=== PATIENT | male | born 1935 | race Caucasian/White ===

== ENCOUNTER 2017-05-04 11:42 | Emergency (ER) | payer MEDICARE ==
[2017-05-04 12:18] VITALS: BP 140/86
--- NOTE | 2017-05-04 12:20 | UC ---
Skin Complaint HPI - HPI Summary HPI Summary: Pt presents with left middle finger puncture wound sustained 1 week ago. He tells me that he was using a railing to guide himself down a set of stairs and caught his finger on a piece of metal. Seemed to be healing well initially, but over the last 2 days has become swollen, red, and painful. Last tetanus was 2 months ago. Denies fever, chills, or decreased ROM - History of Current Complaint Chief Complaint: UCSkin Stated Complaint: FINGER PAIN Hx Obtained From: Patient Onset/Duration: Sudden Onset Skin Exposure Onset/Duration: Days Ago Onset Severity: Mild Current Severity: Mild Pain Intensity: 3 Pain Scale Used: 0-10 Numeric - Allergy/Home Medications Allergies/Adverse Reactions: Allergies Allergy/AdvReac Type Severity Reaction Status Date / Time No Known Allergies Allergy Verified 05/04/17 12:17 Home Medications: Home Medications Famotidine 40 mg PO DAILY 05/04/17 [History Confirmed 05/04/17] Lisinopril TAB* [Prinivil TAB 10 MG*] 20 mg PO DAILY 05/04/17 [History Confirmed 05/04/17] Rivaroxaban TAB(*) [Xarelto 20 mg] 1 tab PO BEDTIME 05/04/17 [History Confirmed 05/04/17] Review of Systems Constitutional: Negative Skin: Other - Swelling and redness left middle finger Respiratory: Negative Cardiovascular: Negative Gastrointestinal: Negative Musculoskeletal: Negative Neurological: Negative Psychological: Negative All Other Systems Reviewed And Are Negative: Yes PMH/Surg Hx/FS Hx/Imm Hx Endocrine History: Dyslipidemia Cardiovascular History: Hypertension - Surgical History Surgical History: Yes Surgery Procedure, Year, and Place: prostactectomy; right kidney benign tumor; right wrist after a fall - Family History Known Family History: Positive: Unknown - Social History Occupation: Retired Lives: With Family Alcohol Use: Daily Alcohol Amount: 1 drink daily Substance Use Type: None Smoking Status (MU): Former Smoker When Did the Patient Quit Smoking/Using Tobacco: 40 yrs ago - Immunization History Most Recent Tetanus Shot: 02/2017 Physical Exam - Summary Physical Exam Summary: GENERAL: NAD. WDWN. No pain distress. SKIN: Mild erythema and edema overlying left middle finger DIP near site of healed 1mm puncture wound. No drainage, bleeding, or warmth. NECK: Supple. Nontender. No lymphadenopathy. CHEST: CTAB. No r/r/w. No accessory muscle use. Breathing comfortably and in no distress. CV: Pulses intact radial and ulnar. Good cap refill distal fingers MSK: Mild TTP over left middle finger DIP with mild edema. FROM. 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 M NEURO: Alert. Sensations intact hand and all fingers. PSYCH: Age appropriate behavior. Triage Information Reviewed: Yes Vital Signs: Initial Vital Signs Temp 97.8 F 05/04/17 12:12 Pulse 74 05/04/17 12:12 Resp 18 05/04/17 12:12 BP 140/86 05/04/17 12:12 Pulse Ox 97 05/04/17 12:12 Course/Dx - Course Course Of Treatment: Cellulitis left middle finger. Keflex - Diagnoses Provider Diagnoses: Left middle finger cellulitis Discharge - Discharge Plan Condition: Stable Disposition: HOME Prescriptions: Cephalexin CAP* [Keflex CAP*] 500 mg PO BID #14 cap Patient Education Materials: Cellulitis (DC) Referrals: Nir Russell MD [Primary Care Provider] - Additional Instructions: If you develop a fever, shortness of breath, chest pain, new or worsening symptoms - please call your PCP or go to the ED. Your blood pressure was high at todays visit. Please see your primary provider within 4 weeks for recheck and re-evaluation.
== END 2017-05-04 12:34 | disposition home or self-care (01) ==
LOC: UCEAST 11:42
DX: L03.012 Cellulitis of left finger (principal); E78.5 Hyperlipidemia, unspecified; I10 Essential (primary) hypertension; Z87.891 Personal history of nicotine dependence
CPT/HCPCS: 99211; G0463

== ENCOUNTER 2017-08-25 13:07 | Observation (INO) | payer MEDICARE ==
[2017-08-25 13:47] LABS: ABS Basophils 0.1 10^3/ul (0-0.2); ABS Eosinophils 0.1 10^3/ul (0-0.6); ABS Lymphocytes 1.9 10^3/ul (1.0-4.8); ABS Monocytes 0.7 10^3/ul (0-0.8); ABS Neutrophils 5.1 10^3/ul (1.5-7.7); ABS Nucleated RBC 0 10^3/ul; Eosinophil % 0.7 % (0-6); Hematocrit 45 % (42-52); Lymphocyte % 24.3 % (25-47); Mean Corpuscular HGB Conc 34 g/dl (31-36); Mean Corpuscular Hemoglobin 32 pg (27-31); Mean Corpuscular Volume 96 fL (80-94); Mean Platelet Volume 9.1 um3 (7.4-10.4); Nucleated Red Blood Cells % 0.1; Platelet Count 229 10^3/ul (150-450); Red Blood Count 4.64 10^6/ul (4.00-5.40); Red Cell Distribution Width 14 % (10.5-15); White Blood Count 7.8 10^3/ul (3.5-10.8)
[2017-08-25 13:51] LABS: INR 1.31 (0.77-1.02)
[2017-08-25 14:04] LABS: EGFR Non-African American 62.5 (>60)
--- NOTE | 2017-08-25 14:32 | RAD ---
Indication: Syncope. Single frontal view of the chest performed at 1345 hours was reviewed. Comparison is made with previous exam dated June 24, 2009. No mediastinal shift is noted. Heart is of normal size and configuration. Lung stack appear clear. Pacemaker leads are in place. IMPRESSION: NO ACTIVE CARDIOPULMONARY DISEASE IS NOTED.
[2017-08-25] MEDS ORDERED: Al Hydrox/Mg Hydrox/Simet LIQ* 30 ML UDC PO PRN (16:43)
[2017-08-25] MEDS ORDERED: Acetaminophen TAB* 325 MG PO PRN (16:43)
--- NOTE | 2017-08-25 18:54 | RAD ---
Indication: Left rib pain after fall 5 views of left ribs are reviewed. No definite fracture of the ribs is noted. IMPRESSION: No definite fracture of the left ribs is noted.
--- NOTE | 2017-08-25 19:16 | ED ---
Alton Cruz Natalie scribed for Jamie Pires MD on 08/25/17 at 1347 . 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 The pt was standing in his laundry room when he passed out and fell, hitting his left ribs on a desk and chair on the way down, but without injury to his head. The pt reports no symptoms occurring immediately before syncopal episode, but he has noticed that for the past 10 days, he has been having Afib episodes around 03:00 causing him to wake up. These episodes are accompanied by SOB and chest tightness, as well as dizziness every morning and "missing beats" in his pulse. The Afib episodes are relieved by his dual pacer, which kicks in when the pt starts to take deep breaths. The pacer has 100% action to top and 30% on bottom. He has hx of Afib and HTN, but he has never experienced a syncopal episode like this before. - History Of Current Complaint Chief Complaint: EDSyncope Time Seen by Provider: 08/25/17 13:11 Hx Obtained From: Patient Onset/Duration: Sudden Onset, Resolved Timing: Seconds - 10 seconds Activity At Onset: Other - standing Associated Head Trauma: No Aggravating Factor(s): Nothing Alleviating Factor(s): Other - deep breathing Associated Signs And Symptoms: Dizzy, Shortness Of Breath, Other - Atrial fibrillation episodes - Allergies/Home Medications Allergies/Adverse Reactions: Allergies Allergy/AdvReac Type Severity Reaction Status Date / Time No Known Allergies Allergy Verified 05/04/17 12:17 PMH/Surg Hx/FS Hx/Imm Hx Cardiovascular History: Reports: Hx Hypertension History: Reports: 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 - Cancer History Cancer Type, Location and Year: prostate - Surgical History Surgery Procedure, Year, and Place: prostactectomy; right kidney benign tumor; right wrist after a fall Infectious Disease History: No Infectious Disease History: Denies: Hx Clostridium Difficile, Hx Hepatitis, Hx Human Immunodeficiency Virus (HIV), Hx of Known/Suspected MRSA, Hx Shingles, Hx Tuberculosis, Hx Known/ Suspected VRE, Hx Known/Suspected VRSA, History Other Infectious Disease, Traveled Outside the [place] in Last 30 Days - Family History Known Family History: Positive: Hypertension - Social History Alcohol Use: Daily Alcohol Amount: 1 drink daily Substance Use Type: Reports: None Smoking Status (MU): Former Smoker Review of Systems Positive: Other - dizziness Positive: Chest Pain - tightness, Other - Atrial fibrillation episodes, " missing beats" in pulse Positive: Shortness Of Breath Positive: Syncope All Other Systems Reviewed And Are Negative: Yes Physical Exam - Summary Physical Exam Summary: Appearance: The patient is well-nourished in no acute distress and in no acute pain. Skin: The skin is warm and dry and skin color reflects adequate perfusion. HEENT: The head is normocephalic and atraumatic. The pupils are equal and reactive. The conjunctivae are clear and without drainage. Nares are patent and without drainage. Mouth reveals moist mucous membranes and the throat is without erythema and exudate. The external ears are intact. The ear canals are patent and without drainage. The tympanic membranes are intact. Neck: The neck is supple with full range of motion and non-tender. There are no carotid bruits. There is no neck vein distension. Respiratory: Chest is non-tender. Lungs are clear to auscultation and breath sounds are symmetrical and equal. Cardiovascular: Heart is regular rate and rhythm. There is no murmur or rub auscultated. There is no peripheral edema and pulses are symmetrical and equal. Abdomen: The abdomen is soft and non-tender. There are normal bowel sounds heard in all four quadrants and there is no organomegaly palpated. Musculoskeletal: There is no back tenderness noted. Extremities are non-tender with full range of motion. There is good capillary refill. There is no peripheral edema or calf tenderness elicited. Neurological: Patient is alert and oriented to person, place and time. The patient has symmetrical motor strength in all four extremities. Cranial nerves are grossly intact. Deep tendon reflexes are symmetrical and equal in all four extremities. Psychiatric: The patient has an appropriate affect and does not exhibit any anxiety or depression. Triage Information Reviewed: Yes Vital Signs On Initial Exam: Initial Vitals Temp Pulse Resp BP Pulse Ox 98.0 F 68 19 169/91 96 08/25/17 13:21 08/25/17 13:21 08/25/17 13:21 08/25/17 13:21 08/25/17 13:21 Vital Signs Reviewed: Yes Diagnostics - Vital Signs Vital Signs Temp Pulse Resp BP Pulse Ox 08/25/17 13:21 98.0 F 68 19 169/91 96 - Laboratory Lab Results: Lab Results 08/25/17 08/25/17 08/25/17 Range/Units 13:39 13:39 13:39 WBC 7.8 (3.5-10.8) 10^3/ul RBC 4.64 (4.00-5.40) 10^6/ul Hgb 15.0 (14.0-18.0) g/dl Hct 45 (42-52) % MCV 96 H (80-94) fL MCH 32 H (27-31) pg MCHC 34 (31-36) g/dl RDW 14 (10.5-15) % Plt Count 229 (150-450) 10^3/ul MPV 9.1 (7.4-10.4) um3 Neut % (Auto) 64.7 (38-83) % Lymph % (Auto) 24.3 L (25-47) % [place] % (Auto) 9.1 H (0-7) % Eos % (Auto) 0.7 (0-6) % Baso % (Auto) 1.2 (0-2) % Absolute Neuts (auto) 5.1 (1.5-7.7) 10^3/ul Absolute Lymphs (auto) 1.9 (1.0-4.8) 10^3/ul Absolute Monos (auto) 0.7 (0-0.8) 10^3/ul Absolute Eos (auto) 0.1 (0-0.6) 10^3/ul Absolute Basos (auto) 0.1 (0-0.2) 10^3/ul Absolute Nucleated RBC 0 10^3/ul Nucleated RBC % 0.1 INR (Anticoag Therapy) (0.77-1.02) Sodium 137 (135-145) mmol/L Potassium 4.4 (3.5-5.0) mmol/L Chloride 106 (101-111) mmol/L Carbon Dioxide 23 (22-32) mmol/L Anion Gap 8 (2-11) mmol/L BUN 19 (6-24) mg/dL Creatinine 1.12 (0.67-1.17) mg/dL Est GFR ( Amer) 75.6 (>60) Est GFR (Non-Af Amer) 62.5 (>60) BUN/Creatinine Ratio 17.0 (8-20) Glucose 100 (70-100) mg/dL Lactic Acid 0.8 (0.5-2.0) mmol/L Calcium 9.8 (8.6-10.3) mg/dL Magnesium 2.1 (1.9-2.7) mg/dL Total Bilirubin 0.90 (0.2-1.0) mg/dL AST 23 (13-39) U/L ALT 20 (7-52) U/L Alkaline Phosphatase 71 (34-104) U/L Troponin I 0.01 (<0.04) ng/mL B-Natriuretic Peptide ( - 100) pg/mL Total Protein 6.5 (6.4-8.9) g/dL Albumin 4.0 (3.2-5.2) g/dL Globulin 2.5 (2-4) g/dL Albumin/Globulin Ratio 1.6 (1-3) TSH 0.98 (0.34-5.60) mcIU/mL 08/25/17 08/25/17 Range/Units 13:39 13:39 WBC (3.5-10.8) 10^3/ul RBC (4.00-5.40) 10^6/ul Hgb (14.0-18.0) g/dl Hct (42-52) % MCV (80-94) fL MCH (27-31) pg MCHC (31-36) g/dl RDW (10.5-15) % Plt Count (150-450) 10^3/ul MPV (7.4-10.4) um3 Neut % (Auto) (38-83) % Lymph % (Auto) (25-47) % [place] % (Auto) (0-7) % Eos % (Auto) (0-6) % Baso % (Auto) (0-2) % Absolute Neuts (auto) (1.5-7.7) 10^3/ul Absolute Lymphs (auto) (1.0-4.8) 10^3/ul Absolute Monos (auto) (0-0.8) 10^3/ul Absolute Eos (auto) (0-0.6) 10^3/ul Absolute Basos (auto) (0-0.2) 10^3/ul Absolute Nucleated RBC 10^3/ul Nucleated RBC % INR (Anticoag Therapy) 1.31 H (0.77-1.02) Sodium (135-145) mmol/L Potassium (3.5-5.0) mmol/L Chloride (101-111) mmol/L Carbon Dioxide (22-32) mmol/L Anion Gap (2-11) mmol/L BUN (6-24) mg/dL Creatinine (0.67-1.17) mg/dL Est GFR ( Amer) (>60) Est GFR (Non-Af Amer) (>60) BUN/Creatinine Ratio (8-20) Glucose (70-100) mg/dL Lactic Acid (0.5-2.0) mmol/L Calcium (8.6-10.3) mg/dL Magnesium (1.9-2.7) mg/dL Total Bilirubin (0.2-1.0) mg/dL AST (13-39) U/L ALT (7-52) U/L Alkaline Phosphatase (34-104) U/L Troponin I (<0.04) ng/mL B-Natriuretic Peptide 162 H ( - 100) pg/mL Total Protein (6.4-8.9) g/dL Albumin (3.2-5.2) g/dL Globulin (2-4) g/dL Albumin/Globulin Ratio (1-3) TSH (0.34-5.60) mcIU/mL Result Diagrams: 08/25/17 13:39 08/25/17 13:39 Lab Statement: Any lab studies that have been ordered have been reviewed, and results considered in the medical decision making process. - Radiology CXR Xray Interpretation: No Acute Changes - No active cardiopulmonary disease is noted. ED physician has reviewed this report. Radiology Interpretation Completed By: Radiologist Ribs XR Xray Interpretation: No Acute Changes - No definite fracture of the left ribs is noted. ED physician has reviewed this report. Radiology Interpretation Completed By: Radiologist - EKG 13:18 Cardiac Rate: NL - 66 BPM EKG Rhythm: Sinus Rhythm - Paced rhythm EKG Interpretation: Ventricular-paced. No ST elevations. Course/Dx Course Of Treatment: Mr. Aguilar presented to the emergency department after a concerning syncopal episode. He had no warning whatsoever and found himself on the ground. He has a pacemaker in which we interrogated and was able to find out that he's been having frequent PVCs that have been increasing in frequency over the last couple of weeks. We were not able to get any more specific information about the last couple of hours. He was kept on a monitor here and labs were checked. EKG only showed a paced rhythm. The hospitalist service was consulted for admission. - Diagnoses Provider Diagnoses: Syncope and collapse - Physician Notifications Discussed Care of Patient With: Poornima Macias Time Discussed With Above Provider: 17:30 - Pt is accepted for admission. Instructed by Provider To: Admit As Inpatient Discharge - Sign-Out/Discharge Documenting (check all that apply): Discharge/Admit/Transfer - [place] [facility] [place] of Dr. Macias. - Discharge Plan Condition: Stable Disposition: ADMITTED TO [facility] - Billing Disposition and Condition Condition: STABLE Disposition: Admitted to [facility] The documentation as recorded by the Alton villanueva Natalie accurately reflects the service I personally performed and the decisions made by me, Jamie Pires MD.
--- NOTE | 2017-08-25 20:16 | HP ---
CC: Dr. Russell * HISTORY AND PHYSICAL: DATE OF ADMISSION: 08/25/17 PROVIDER: Poornima Macias NP PRIMARY CARE PROVIDERS: Dr. Russell and Dr. Alston. ATTENDING PHYSICIAN WHILE IN THE HOSPITAL: Gabriel Farmer MD * (dictated by Poornima Macias NP) CHIEF COMPLAINT: Syncope. HISTORY OF PRESENT ILLNESS: Mr. Aguilar is an 82-year-old gentleman with a past medical history significant for hypertension, AFib, PVCs, complete heart block in 2001 with pacemaker placement, history of prostate cancer in 2001, paroxysmal atrial fibrillation, benign paroxysmal positional vertigo, hypercholesterolemia, thoracic aneurysm, which on 06/21/17 was noted to be 4 cm. Mr. Aguilar presented to the emergency room for evaluation after a syncopal episode at home. The patient states that he was feeling in his normal state of health. He was walking from the laundry room to the garage and had an episode where he passed out for approximately 10 seconds. He does report that he remembers that he was going to fall but had no warning. He does remember waking after that brief episode and his at that time was coming into the room where he had fallen. He does report that he did feel a little bit woozy after his fall, but was able to get up and walk. He has no further complaints. He denies any head injury. He denies any neck pain. He does report that recently over the past couple of months, he has been feeling skipping beats with his heart that are waking him up at night causing him to have some chest pressure. He denies any other symptoms. He denies any fever or chills. Denies any nausea or vomiting. Denies any diarrhea or abdominal pain. Denies any hematuria or dysuria. Denies any focal weakness or sensory loss. Denies any visual complaints, dysphagia. Denies any arthralgias or myalgias. Denies any rashes or lesions. He denies any chest pain. He does complain of left lower rib pain. He although does report an unrelated event that approximately 2 weeks ago he was doing yard work and he did have an episode of being dizzy and that his blood pressure was low when he checked his blood pressure at home. He states that these symptoms are unrelated to the event today and that the symptoms of today's event and that event are unrelated and not similar. While in the emergency room, he was monitored on telemetry. He had routine lab work drawn. We were asked by the emergency room physician to evaluate him for admission due to the syncopal episode and his history of having pacemaker. PAST MEDICAL HISTORY: Significant for: 1. Hypertension. 2. Complete heart block in 2001 with pacemaker insertion. 3. Atrial fibrillation. 4. PVCs. 5. History of prostate cancer in 2001. 6. Paroxysmal atrial fibrillation. 7. Thoracic aortic aneurysm, last measured on 06/21/17 with 4.0 cm. 8. Benign paroxysmal positional vertigo. PAST SURGICAL HISTORY: Significant for: 1. Pacemaker insertion. 2. Pacemaker generator change in 2009. 3. Prostatectomy in 2001. 4. Tumor, benign on the left hernia repair. MEDICATIONS: Home medications include: 1. Xarelto 20 mg 1 tablet p.o. daily. 2. Lisinopril 20 mg 1 tablet p.o. daily. 3. Multivitamin 1 tablet p.o. daily. 4. Toprol-XL 50 mg 1 tablet p.o. daily. 5. Vitamin D3 of 1000 units 1 tablet p.o. daily. 6. Omeprazole 20 mg 1 capsule by mouth every day. 7. Stool softener 100 mg 1 by mouth daily. ALLERGIES TO MEDICATIONS: MULTAQ. FAMILY HISTORY: Father with a history of coronary artery disease. Denied any history of diabetes. Does report that daughter has stage IV bone cancer and both brothers had prostate cancer. SOCIAL HISTORY: Denies any tobacco use. He does report daily alcohol use. Denies illicit drug use. He is . He lives with his , Rebecca. Surrogate decision maker in the event he is unable to make his own decisions is his , Rebecca, her phone number is [phone]. Second surrogate decision maker is his son, Kennedy. The patient is a full code. REVIEW OF SYSTEMS: There was no documented fever. There has been no unintended weight loss. Denies any loss of appetite. Denies chest pain or edema. Denies any cough, congestion, hemoptysis, or shortness of breath. Denies any nausea, vomiting, diarrhea. Denies any abdominal pain. Denies any hematuria or dysuria. Denies any focal weakness or sensory loss. Denies any visual complaints. Denies any dysphagia. Denies any arthralgias or myalgias. Denies any rashes or lesions. Denies any psychosis or anxiety. PHYSICAL EXAMINATION GENERAL: At this time, Mr. Aguilar is an 82-year-old male, appears well, sitting on the stretcher in the emergency room. He does not appear in any acute distress. He is alert and oriented x4. VITAL SIGNS: Blood pressure 139/78, heart rate is 66, respirations are 20, O2 saturation is 98% on room air, temperature 98.0. HEENT: Head is atraumatic, normocephalic. Eyes: EOMs are intact. Sclerae anicteric and not pale. Pupils are equal and reactive to light at 2 mm. Oral mucosa appears to be moist. There is no oropharyngeal erythema. NECK: Supple. There is no tenderness to the C-spine with palpation. LUNGS: Clear to auscultation bilaterally. No wheezes, rales, or rhonchi. He does complain of some tenderness to the left lower ribs. CARDIAC: S1, S2. Regular rate and rhythm. No rubs or gallops. ABDOMEN: Soft and nontender. Bowel sounds are present x4. EXTREMITIES: Pulses are +2 throughout. He is able to move all 4 extremities with 5/5 strength. NEUROLOGIC: He is awake, alert, and oriented x4. His tongue is midline. Speech is clear. Cranial nerves II through XII are intact. [id number] is intact. Sensation is intact to both extremities. SKIN: Intact. DIAGNOSTIC STUDIES AND LABORATORY DATA: WBCs are 7.8, hemoglobin was 15, hematocrit was 45, platelet count was 229,000. INR was 1.31. Sodium 137, potassium 4.4, chloride was 106, carbon dioxide was 23, BUN was 19, creatinine 1.12, glucose was 100. Lactic acid was 0.8. Calcium was 9.8. Magnesium was 2.1. AST's were 23, Alts were 20. Troponin was 0.01. BNP was 162. TSH was 0.98. He did have a chest x-ray, which showed no active cardiopulmonary disease. Electrocardiogram showed paced rhythm at a rate of 66. ASSESSMENT AND PLAN: Mr. Aguilar is an 82-year-old gentleman that presented to the emergency room today for further evaluation of a brief syncopal episode at home. We were asked to see and evaluate him due to the syncope. He will be admitted under observation for: 1. Syncope. I suspect this could be related to a cardiac arrhythmia. He did have a pacemaker interrogation completed in the emergency room, which showed increased amount of PVCs. We will continue to trend his troponins times a total of 3. He will be monitored on telemetry. I did consult Cardiology, Dr. Wynn for further recommendations in regards to his pacemaker and monitoring his thoracic aneurysm. 2. Left lower rib pain. He can use ice and Tylenol as needed for pain. I will get a chest x-ray with rib views to rule out fracture. 3. Hypertension. He will continue on his lisinopril and metoprolol. We will get orthostatic vital signs. 4. Atrial fibrillation/complete heart block. He does have a pacemaker that was interrogated, shows increase in PVCs. We will continue to monitor him on telemetry. We will continue his metoprolol. Cardiology recommendations are pending. Continue Xarelto. 5. FEN. He will be placed on heart healthy, decaf okay diet. 6. Code status. He is a full code. 7. DVT prophylaxis. He will continue his Xarelto. 8. Disposition. He will be placed on observation. TIME SPENT: Time spent on this admission was approximately 60 minutes, greater than half the time was spent [id number] with the patient obtaining my history and physical, the other half of the time was spent going over my plan of care and implementing my plan of care. I have discussed this with my attending, Dr. Bogdan Farmer, he is in agreement with my plan. POORNIMA MACIAS, SET ILLUSTRATOR [id number]/CPS #: [id number] FRANK
[2017-08-25] MEDS ORDERED: Rivaroxaban TAB(*) 20 MG TAB PO SCH (21:00)
[2017-08-25 22:28] LABS: Urine Appearance Clear; Urine Blood 1+ (Negative); Urine Color Yellow; Urine Ketones Negative (Negative); Urine Protein Negative (Negative); Urine Specific Gravity 1.012 (1.010-1.030); Urine Urobilinogen Negative (Negative)
[2017-08-26 06:24] LABS: ABS Basophils 0 10^3/ul (0-0.2); ABS Eosinophils 0.1 10^3/ul (0-0.6); ABS Monocytes 0.6 10^3/ul (0-0.8); ABS Nucleated RBC 0 10^3/ul; Eosinophil % 1.6 % (0-6); Hematocrit 41 % (42-52); Hemoglobin 13.9 g/dl (14.0-18.0); Lymphocyte % 35.3 % (25-47); Mean Corpuscular HGB Conc 34 g/dl (31-36); Mean Corpuscular Hemoglobin 33 pg (27-31); Mean Corpuscular Volume 96 fL (80-94); Mean Platelet Volume 9.6 um3 (7.4-10.4); Nucleated Red Blood Cells % 0; Platelet Count 194 10^3/ul (150-450); Red Blood Count 4.25 10^6/ul (4.00-5.40); Red Cell Distribution Width 14 % (10.5-15); White Blood Count 5.8 10^3/ul (3.5-10.8)
[2017-08-26 06:40] LABS: EGFR Non-African American 63.8 (>60)
[2017-08-26] MEDS ORDERED: Multivitamins/Minerals TAB PO SCH (09:00)
[2017-08-26] MEDS ORDERED: Famotidine TAB* 20 MG PO SCH (09:00)
[2017-08-26] MEDS ORDERED: Lisinopril TAB* 10 MG PO SCH (09:00)
[2017-08-26] MEDS ORDERED: Metoprolol Succinate XL TAB* 50 MG PO SCH (09:00)
[2017-08-26 12:30] VITALS: BP 130/70
--- NOTE | 2017-08-26 14:02 | CONS ---
CC: Dr. Alston* CONSULTATION REPORT: DATE OF CONSULT: 08/26/17 INDICATIONS FOR CONSULTATION: Syncope. HISTORY OF PRESENT ILLNESS: The patient is an 82-year-old gentleman with a history of complete heart block, history of a dual chamber Medtronic pacemaker implantation who had a syncopal episode yesterday. The patient states that around 1 o'clock yesterday, he got up and was walking in the garage near a desk and suddenly collapsed onto the ground. He did not have any prodrome, he did not feel nauseous or uncomfortable. He said the garage was quite warm and ended up on the floor. He got up and walked back into the house and was brought to the emergency room for evaluation. The patient does state that earlier in the day, he had been having some vertigo , he said he had been feeling a little bit unsteady on his feet. In the emergency room, his evaluation was unremarkable. His EKG showed normal AV paced rhythm for his pacemaker. An interrogation of his pacemaker demonstrated a Medtronic dual chamber pacemaker, he is atrial paced 40% of the time, ventricularly paced 100% of the time, his device was functioning completely normally, no arrhythmias were noted. He did have an episode of atrial fibrillation, but this was in March of 2017. PAST MEDICAL HISTORY: Complete heart block, dual chamber pacemaker implantation , hypertension, paroxysmal atrial fibrillation, prostate cancer, positional vertigo. OUTPATIENT MEDICATIONS: 1. Xarelto 20 mg a day. 2. Lisinopril 20 mg a day. 3. Multivitamin a day. 4. Metoprolol 50 mg daily. 5. Omeprazole 20 mg a day. ALLERGIES: MULTAQ. FAMILY HISTORY: He does not report any significant coronary artery disease. SOCIAL HISTORY: He denies tobacco or alcohol use. He does get regular exercise. He lives with his . PHYSICAL EXAMINATION: Height is 6 feet 1 inch, weight is 202 pounds, temperature 98.4, heart rate is 65, blood pressure 134/63, respiratory rate is 20, oxygen saturation 97% on room air. HEENT: Sclerae anicteric. Oropharynx is pink without erythema. Carotids are 2+ without bruits. JVD is normal. Thyroid is normal. Cardiac Exam: S1, S2, without any murmurs, rubs or gallops. Lungs: Clear to auscultation bilaterally. There is no dullness to percussion. Abdomen is soft, nontender, nondistended with normoactive bowel sounds. Extremities show no edema. He has 2+ pulses throughout. The patient is awake, alert and oriented. He moves all four extremities equally. DIAGNOSTIC STUDIES/LAB DATA: CBC within normal limits. Chemistry is within normal limits. Troponins are negative x2. TSH is 0.98. He did have an echocardiogram back in February 2017, which showed normal LV size and systolic function, no significant valvular abnormalities. IMPRESSION: This is an 82-year-old gentleman who was admitted to the hospital with a syncopal episode. Again, I cannot give a specific reason for his syncope. His pacemaker is functioning normally. No significant arrhythmias. His blood pressure is under good control. At this point, I don't think any other cardiac testing is necessary. Patient will follow up with Dr. Alston as an outpatient. [id number]/[facility] #: [id number] MTDRoni
--- NOTE | 2017-08-26 21:55 | DS ---
CC: Dr. Russell; Dr. Alston * DISCHARGE SUMMARY: DATE OF ADMISSION: 08/25/17 DATE OF DISCHARGE: 08/26/17 HISTORY: This 82-year-old man presented after syncope. He was in his usual state of health. He had breakfast on the morning of admission. He took all of his medications at the usual time. He went out to water some plants, it was about 80 degrees outside and he came inside, he went and got the mail, on the way back around 2.00 p.m. he suddenly lost consciousness he says without any warning, he hit the desk. He was not aware of falling or hitting the ground. He woke up on the ground. His left ribs were sore. This has never happened to him before. His heard a noise and came to talk to him. He started to get up and said "I think I am going to pass out again" but then that feeling passed. He was taken to the hospital by his son. He had no further events in the hospital. He was placed on the telemetry unit. He had his pacemaker interrogated as he had some runs of V-tach in March of this year, but nothing recently. Dr. Wynn reviewed the interrogation report as well. His orthostatic vital signs were normal. Routine lab work was unremarkable. He had 2 troponins, both of which were within normal limits. I am not changing any of his medications. I think syncope may be related to a combination of him not eating lunch that day and working outside in hot weather , although he states he did not really do anything heavy or get hot. FINAL DIAGNOSES: 1. Syncope. 2. Hypertension. 3. Complete heart block with pacemaker in 2001. 4. Atrial fibrillation. 5. Prostate cancer in 2001. 6. Thoracic aortic aneurysm, last imaged on 06/21/17 at 4.0 cm. 7. Benign paroxysmal positional vertigo. DISCHARGE MEDICATIONS: 1. Acetaminophen 650 mg every 4 hours p.r.n. 2. Metoprolol succinate 50 mg daily. 3. Multivitamin one daily. 4. Rivaroxaban one 20 mg h.s. 5. Lisinopril 20 mg daily. 6. Famotidine 40 mg daily. [id number]/[facility] #: [id number] [facility]
== END 2017-08-26 13:30 | disposition home or self-care (01) ==
LOC: ED 13:07 → MEDTELE 17:44
PROVIDERS: ADMIT Internal Medicine; ATTEND Internal Medicine
DX: R55 Syncope and collapse (principal); I10 Essential (primary) hypertension; Z95.0 Presence of cardiac pacemaker; I48.91 Unspecified atrial fibrillation; R07.9 Chest pain, unspecified; R06.02 Shortness of breath; Z85.46 Personal history of malignant neoplasm of prostate; I71.2 Thoracic aortic aneurysm, without rupture; H81.10 Benign paroxysmal vertigo, unspecified ear; Z79.899 Other long term (current) drug therapy; Z79.01 Long term (current) use of anticoagulants; Z82.49 Family history of ischemic heart disease and other diseases of the circulatory system; I44.2 Atrioventricular block, complete
CPT/HCPCS: 36415; 71045; 80048; 80053; 81003; 81015; 83605; 83735; 83880; 84443; 84484; 85025; 85610; 93005; 99284; A9270-GY; G0378

== ENCOUNTER 2018-01-28 11:08 | Day surgery (SDC) | payer MEDICARE ==
[~2018-01-28 11:08] MED LIST: Buffered Lidocaine 0.9% SYRIN* 5 ML/SYR SYRINGE INTRADERM ONE
[2018-01-28] MEDS ORDERED: Lidocaine 1% INJ* 10 MG/ML 30 ML SDV ONE (12:45)
[2018-01-28] MEDS ORDERED: ROPIVACAINE 5 MG/ML 30 ML BTL (0.5%) ONE (12:45)
[2018-01-28] MEDS ORDERED: Bupivacaine 0.25% SDV PF* 10 ML VIAL INJ ONE (13:00)
[2018-01-28] MEDS ORDERED: Naloxone* 0.4 MG/ML 1 ML VIAL IV PRN (13:20)
[2018-01-28] MEDS ORDERED: fentaNYL* 50 MCG/ML 2 ML VIAL (100 MCG VIAL) ONE (13:27)
[2018-01-28] MEDS ORDERED: Lidocaine 2% PF * 5 ML VIAL ONE (13:31)
[2018-01-28] MEDS ORDERED: Propofol* 10 MG/ML 20 ML BTL ONE (13:31)
[2018-01-28 14:31] VITALS: BP 140/70
--- NOTE | 2018-01-29 10:38 | OP ---
DATE OF OPERATION: 01/28/18 - [facility] DATE OF : 31 ATTENDING SURGEON: Crista Ortiz MD INSURANCE COORDINATOR: ELHAM Villatoro. An assistant inventory manager was needed for the entirety of the case to help with positioning, retraction, and was utilized throughout all portions of the case. ANESTHESIOLOGIST: Dr. Kwon. ANESTHESIA: Local with monitored anesthesia care. PRE-OP DIAGNOSIS: Left severe carpal tunnel. POST-OP DIAGNOSIS: Left severe carpal tunnel. OPERATIVE PROCEDURE: Left open carpal tunnel release. INDICATIONS: Briefly, Mr. Aguilar is a very pleasant 82-year-old male with persistent worsening carpal tunnel syndrome. He has elected to proceed with surgical treatment. Risks and benefits of surgery were discussed at length and included but not limited to bleeding, infection, damage to nerves, vessels, surrounding structures, wound nonhealing, persistent pain, need for further surgery, scarring, stiffness, incomplete relief of symptoms, risks of anesthesia. He has elected to proceed with anesthesia. He underwent premedical optimization and had stopped his medications prior to surgery. DESCRIPTION OF PROCEDURE: The patient was greeted in the preoperative area by the attending surgeon. Correct extremity was marked and consent was confirmed. The patient was brought back to the operating suite where he was placed in supine position, left on the stretcher. The left extremity was brought out. A nonsterile tourniquet was placed high on the left forearm. The left arm was prepped and draped in the usual sterile fashion beginning with chlorhexidine, soap, scrub, and alcohol wipe and a final prep with ChloraPrep. After appropriate surgical pause indicating site, side, procedure and no antibiotics were given, the tourniquet was inflated. An incision was made over the carpal tunnel using kaplans line where it intersects with the radial edge of the fourth digit, the soft tissue was carefully dissected down to expose the palmar fascia, which was then incised and then a dissection was taken down to expose the carpal tunnel with more attention ulnarly. The carpal tunnel was identified and then carefully released. This was very thick tissue, this was released with a 15-blade and once enough room was made, a [place] underneath to carefully protect the nerve. This was released first distally. Once it was completely free of all adhesions, the nerve was examined and found to be large but not hemorrhagic. The dissection was then taken proximally and carefully, this was then released from any adhesions proximally. The [place] was then used to check proximally and distally to make sure there was no evidence of impingement. The wounds were then copiously irrigated with sterile saline. The wound was closed with 3-0 nylon in interrupted fashion. A sterile dressing was applied. The tourniquet was taken down for a total time of 15 minutes. He was awoken from anesthesia. The extremities were pink and well perfused. He was discharged to the PACU in stable condition. POSTOPERATIVE PLAN: He will be nonweightbearing. He will be in a splint and dressings for 3 to 5 days. Discharged on pain medication. I will see the patient back in 10 to 14 days. [id number]/[facility] #: [id number] FRANK
== END 2018-01-28 14:48 | disposition home or self-care (01) ==
LOC: OREAST 11:08
PROVIDERS: ATTEND Orthopaedic Surgery
DX: G56.02 Carpal tunnel syndrome, left upper limb (principal); I25.2 Old myocardial infarction; I10 Essential (primary) hypertension; I48.91 Unspecified atrial fibrillation; Z85.46 Personal history of malignant neoplasm of prostate; I34.8 Other nonrheumatic mitral valve disorders; E78.00 Pure hypercholesterolemia, unspecified; Z95.0 Presence of cardiac pacemaker; Z79.01 Long term (current) use of anticoagulants; Z87.891 Personal history of nicotine dependence
CPT/HCPCS: J2704; J2795; J3010; J3490

== ENCOUNTER 2019-06-20 15:26 | Emergency (ER) | payer MEDICARE ==
--- OUTSIDE RECORDS SUMMARY | 2019-06-20 15:49 | XMS REPORT | Continuity of Care Document ---
:1935 External Reference #:[id number] Author Name Rosario Kurtz MD Address [address], [place] [address] Problems Active Problems Provider Date Benign essential hypertension Nir Russell M.D. Onset: 11/14/2010 Pure hypercholesterolemia Nir Russell M.D. Onset: 11/14/2010 History of malignant neoplasm of prostate Nir Russell M.D. Onset: 11/14 Inguinal hernia without obstruction AND Nir Russell M.D. Onset: 2011 without gangrene Benign paroxysmal positional vertigo Nir Russell M.D. Onset: 06/24/2012 Arthralgia of the ankle and/or foot Nir Russell M.D. Onset: 06/24/2012 Cardiac pacemaker in situ Leticia Alston M.D. Onset: 01/29/2013 Mitral valve disorder Leticia Alston M.D. Onset: 01/29/2013 Rheumatic disease of tricuspid valve Leticia Alston M.D. Onset: 01/29/2013 Thoracic Aortic Ectasia Leticia Alston M.D. Onset: 01/29/2013 Atrial fibrillation Leticia Alston M.D. Onset: 02/24/2014 Complete atrioventricular block Leticia Alston M.D. Onset: 09/16/2014 Essential hypertension Nir Russell M.D. Onset: 01/28/2015 Localized, primary osteoarthritis of the Maria Alejandra Hahn M.D. Onset: 07/12/2015 pelvic region and thigh Localized, primary osteoarthritis of the Crista Ortiz MD Onset: 08/10/2015 shoulder region Full thickness rotator cuff tear Crista Ortiz MD Onset: 08/10/2015 Paroxysmal atrial fibrillation Leticia Alston M.D. Onset: 03/14/2016 Jaw pain Leticia Alston M.D. Onset: 04/25/2016 Strain of rotator cuff capsule Crista Ortiz MD Onset: 05/11/2016 Carpal tunnel syndrome of left wrist Crista Ortiz MD Onset: 02/01/2017 Lesion of ulnar nerve Crista Ortiz MD Onset: 02/01/2017 Disorder of shoulder Crista Ortiz MD Onset: 02/07/2018 Localized, primary osteoarthritis Maria Alejandra Hahn M.D. Onset: 05/27/2018 Trochanteric bursitis Maria Alejandra Hahn M.D. Onset: 05/27/2018 Sprain of hip Maria Alejandra Hahn M.D. Onset: 11/06/2018 Right side sciatica Maria Alejandra Hahn M.D. 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 Allergies, Adverse Reactions, Alerts Active Allergies Reaction Severity Comments Date Multaq 07/29/2014 Inactive Allergies NKDA 11/28/2006 Medications Active Medications SIG Qnty Indications Ordering Provider Date Lisinopril 1 by mouth every 90tabs Sydni Wilson NP 01/28/2019 5mg Tablets day Xarelto take 1 tablet by 90tabs I48.0 Leticia Alston, 10/15/2015 20mg Tablets mouth every day M.DRubi Multivitamins 1 PO qd Nir Russell, 11/28/2006 Tablets M.DRubi Toprol XL 1.5 tablets 90tabs Sydni Wilson NP 50mg Tablets ER orally every day 24HR Vitamin D-3 1 by mouth every Unknown 1000Unit day Capsules Stool Softener 1 by mouth daily Unknown 100mg Capsules Omeprazole Take 1 Capsule 90caps Jose Armando Evangelista NP 20mg Capsules By Mouth Every DR Day Medications Administered in Office Medication SIG Qnty Indications Ordering Provider Date Synvisc Or Synvisc-One Maria Alejandra Hahn M.D. 04/09/2019 Injection 1 MG Injection Synvisc Or Synvisc-One Maria Alejandra Hahn M.D. 04/02/2019 Injection 1 MG Injection Synvisc Or Synvisc-One Maria Alejandra Hahn M.D. 03/26/2019 Injection 1 MG Injection [facility] pharmacy Unknown 03/24/2019 administered Injection Depomedrol 40MG Maria Alejandra Hahn M.D. 09/09/2018 Injection Depomedrol 40MG Maria Alejandra Hahn M.D. 05/27/2018 Injection Depomedrol 40MG Maria Alejandra Hahn M.D. 05/27/2018 Injection Triamcinolone (Kenalog) Crista Ortiz MD 02/07/2018 Injection Inj, Regadenoson, 0.1 MG Vj Skinner, DO [facility] 01/25/2018 Injection Technetium TC 99M Vj Skinner, DO [facility] 01/25/2018 Tetrofosmin, Per Unit Dose Up To 40 Millicuries Injection Triamcinolone (Kenalog) Crista Ortiz MD 01/09/2017 Injection Triamcinolone (Kenalog) Crista Ortiz MD 05/11/2016 Injection Inj, Regadenoson, 0.1 MG Vj Skinner, DO [facility] 04/21/2016 Injection Technetium TC 99M Vj Skinner, DO [facility] 04/21/2016 Tetrofosmin, Per Unit Dose Up To 40 Millicuries Injection Triamcinolone (Kenalog) Crista Ortiz MD 11/12/2015 Injection Depomedrol 40MG Maria Alejandra Hahn M.D. 07/12/2015 Injection Depomedrol 80MG Maria Alejandra Hahn M.D. 10/08/2013 Injection Depomedrol 80MG Maria Alejandra Hahn M.D. 01/06/2013 Injection Immunizations CPT Code Status Date Vaccine Reaction Lot # 56968 Given 11/27/2017 Fluzone High Dose 99334 Given 02/28/2017 Tdap - Pt. tolerated well. No [id number] Tetanus/Diptheria/Acellular immediate reaction Pertussis noted. 00328 Given 11/20/2016 Influenza Virus Vaccine, [id number] Quadrivalent, Split, Preservative Free 72098 Given 12/05/2015 Fluzone High Dose 06948 Given 12/12/2014 Fluzone High Dose 97639 Given 01/28/2014 Pneumococcal Conjugate [id number] Vaccine 13 Valent For Intramuscular Use 05554 Given 12/12/2013 Flu Vaccine Split Virus [id number] Preservative Free For Indiv 3Yr Older 89060 Given 01/06/2013 Zoster (Zostavax) [id number] Q2038 Given 12/17/2012 Fluzone Vaccine Q2038 Given 11/13/2011 Fluzone Vaccine [id number] Q2038 Given 11/14/2010 Fluzone Vaccine [id number] 87649 Given 12/17/2009 Influenza Virus 3Yrs & Over [id number] 11698 Given 02/11/2009 Influenza Virus 3Yrs & Over [id number] 51641 Given 12/12/2007 Influenza Virus 3Yrs & Over 64120 Given 11/29/2006 Influenza Virus 3Yrs & Over [id number] 81672 Given 11/28/2005 Td (History By Patient) 47318 Given 12/26/1999 Pneumovax (History By Patient) Vital Signs Date Vital Result Comment 05/08/2019 1:07pm Height 71.75 inches 5'11.75" Weight 207.38 lb Heart Rate 76 /min BP Systolic 140 mmHg BP Diastolic 82 mmHg Body Temperature 95.8 F O2 % BldC Oximetry 97 % BMI (Body Mass Index) 28.3 kg/m2 04/09/2019 9:04am Height 71.75 inches 5'11.75" Weight 200.00 lb Heart Rate 77 /min BP Systolic Sitting 142 mmHg BP Diastolic Sitting 82 mmHg Respiratory Rate 14 /min Pain Level 0 O2 % BldC Oximetry 96 % BMI (Body Mass Index) 27.3 kg/m2 Results Test Acquired Date Facility Test Result H/L Range Note Basic Metabolic 01/30/2019 [facility] Sodium 139 mmol/L Normal 135-[address] [place] [address] [phone] Potassium 4.6 mmol/L Normal 3.5-5.0 Chloride 106 mmol/L Normal 101-111 Co2 Carbon Dioxide 27 mmol/L Normal 22-32 Anion Gap 6 mmol/L Normal 2-11 Glucose 79 mg/dL Normal 70-100 Blood Urea Nitrogen 13 mg/dL Normal 6-24 Creatinine 1.15 mg/dL Normal 0.67-1.17 BUN/Creatinine Ratio 11.3 Normal 8-20 Calcium 10.2 mg/dL Normal 8.6-10.3 Egfr Non- 60.4 >60 Egfr 73.1 >60 1 1 Because ethnic data is not always readily available, this report includes an eGFR for both -Americans and non- Americans. The National Kidney Disease Education Program (NKDEP) does not endorse the use of the MDRD equation for patients that are not between the ages of 18 and 70, are , have extremes of body size, muscle mass, or nutritional status, or are non- or non-. According to the National Kidney Foundation, irrespective of diagnosis, the stage of the disease is based on the level of kidney function: Stage Description GFR(mL/min/1.73 m(2)) 1 Kidney damage with normal or decreased GFR 90 2 Kidney damage with mild decrease in GFR 60-89 3 Moderate decrease in GFR 30-59 4 Severe decrease in GFR 15-29 5 Kidney failure <15 (or dialysis) Procedures Date Code Description Status 04/09/2019 Inject/Drain Joint/Bursa Major W/O US Completed 04/02/2019 Inject/Drain Joint/Bursa Major W/O US Completed 03/26/2019 Inject/Drain Joint/Bursa Major W/O US Completed 03/18/2019 24483 Interrogation Device Eval In Person W/ Completed Analysis,Single,Dual,Mul 03/18/2019 48153 Interrogation Device Eval In Person W/ Completed Analysis,Single,Dual,Mul 02/03/2019 75690 ECHO Transthoracic, Real-Time 2D With Doppler And Color Completed Flow 02/03/2019 21568 ECHO Transthoracic, Real-Time 2D With Doppler And Color Completed Flow 01/28/2019 21963 Pace Maker Eval W/Iterative Adjment Dual Lead Completed 01/28/2019 81826 Pace Maker Eval W/Iterative Adjment Dual Lead Completed 01/29/2007 [id number] Colonoscopy Completed 02/01/2001 [id number] Colonoscopy Completed Medical Devices Description No Information Available Encounters Type Date Location Provider Dx Diagnosis Office Visit 01/28/2019 [facility] Sydni Wilson, I48.0 Paroxysmal atrial 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 I71.2 Thoracic aortic aneurysm, without rupture I34.0 Nonrheumatic mitral (valve) insufficiency I49.3 Ventricular premature depolarization Office Visit 12/09/2018 9:45a [facility] Maria Alejandra Hahn, M25.561 Pain in right at [facility] M.DRubi knee M25.461 Effusion, right knee M17.11 Unilateral primary osteoarthritis, right knee M25.361 Other instability, right knee Assessments Date Code Description Provider 04/09/2019 M25.561 Pain in right knee Maria Alejandra Jovani M.DRubi 04/09/2019 M25.461 Effusion, right knee Maria Alejandra Jovani M.DRubi 04/09/2019 M17.11 Unilateral primary osteoarthritis, right knee Maria AlejandraEdy Choi.DRubi 04/02/2019 M25.561 Pain in right knee Maria Alejandra Jovani M.D. 04/02/2019 M25.461 Effusion, right knee Maria Alejandra Jovani, M.DRubi 04/02/2019 M17.11 Unilateral primary osteoarthritis, right knee Maria Alejandra Jovani M.DRubi 03/26/2019 M25.561 Pain in right knee Maria Alejandra Jovani, M.D. 03/26/2019 M25.461 Effusion, right knee Maria Alejandra Jovani M.DRubi 03/26/2019 M17.11 Unilateral primary osteoarthritis, right knee Maria Alejandra Edy Hahn.DRubi 03/18/2019 Z95.0 Presence of cardiac pacemaker Leticia Alston M.D. 03/18/2019 Z95.0 Presence of cardiac pacemaker Ica Pacer Schedule 03/18/2019 I44.2 Atrioventricular block, complete Leticia Alston M.D. 03/18/2019 I44.2 Atrioventricular block, complete Ica Pacer Schedule 03/18/2019 I48.0 Paroxysmal atrial fibrillation Leticia Alston M.D. 03/18/2019 I48.0 Paroxysmal atrial fibrillation Ica Pacer Schedule 02/03/2019 I71.2 Thoracic aortic aneurysm, without rupture Leticia Alston M.D. 02/03/2019 I71.2 Thoracic aortic aneurysm, without rupture Traveling ECHO 2 01/28/2019 I48.0 Paroxysmal atrial fibrillation Ica Pacer Schedule 01/28/2019 I48.0 Paroxysmal atrial fibrillation Sydni Wilson NP 01/28/2019 Z95.0 Presence of cardiac pacemaker Leticia Alston M.D. 01/28/2019 I44.2 Atrioventricular block, complete Ica Pacer Schedule 01/28/2019 I71.2 Thoracic aortic aneurysm, without rupture Sydni Wilson NP 01/28/2019 Z95.0 Presence of cardiac pacemaker Ica Pacer Schedule 01/28/2019 I34.0 Nonrheumatic mitral (valve) insufficiency Sydni Wilson NP 01/28/2019 I49.3 Ventricular premature depolarization Sydni Wilson NP 12/09/2018 M25.561 Pain in right knee Maria Alejandra Hahn M.D. 12/09/2018 M25.461 Effusion, right knee Maria Alejandra Hahn M.D. 12/09/2018 M17.11 Unilateral primary osteoarthritis, right knee Maria Alejandra Hahn M.D. 12/09/2018 M25.361 Other instability, right knee Maria Alejandra Hahn M.D. Plan of Treatment Future Appointment(s):08/01/2019 1:00 pm - Ica Pacer Schedule at [facility]08/01/2019 1:10 pm - Leticia Alston M.D. at [facility] Functional Status Description No Information Available Mental Status Description No Information Available Referrals Description No Information Available
--- OUTSIDE RECORDS SUMMARY | 2019-06-20 15:49 | XMS REPORT | Continuity of Care Document ---
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 Allergies, Adverse Reactions, Alerts Active Allergies Reaction [...] Nir Russell, 11/28/2006 Tablets M.DRubi Toprol XL 1 tab twice a 90tabs Sydni Wilson NP 50mg Tablets ER day 24HR Vitamin D-3 1 by mouth [...] Inj, Regadenoson, 0.1 MG Vj Skinner, DO [facility] 01/25/2018 Injection Technetium TC 99M Vj Skinner, DO [facility] 01/25/2018 Tetrofosmin, Per Unit Dose Up To 40 Millicuries Injection Triamcinolone (Kenalog) Crista Ortiz MD 01/09/2017 Injection Triamcinolone (Kenalog) Crista Ortiz MD 05/11/2016 Injection Inj, Regadenoson, 0.1 MG Vj Skinner, DO [facility] 04/21/2016 Injection Technetium TC 99M Vj Skinner, DO [facility] 04/21/2016 Tetrofosmin, Per Unit Dose Up To 40 Millicuries Injection Triamcinolone (Kenalog) Crista Ortiz MD 11/12/2015 Injection Depomedrol 40MG Maria Alejandra Hahn M.D. 07/12/2015 Injection Depomedrol 80MG Maria Alejandra Hahn M.D. 10/08/2013 Injection Depomedrol 80MG Maria Alejandra Hahn M.D. 01/06/2013 Injection Immunizations CPT Code Status Date Vaccine Reaction Lot # [id number] Given 11/28/2018 Fluzone High Dose 91950 Given 11/27/2017 Fluzone High Dose 19096 Given 02/28/2017 Tdap - Pt. tolerated well. No tb2r2 Tetanus/Diptheria/Acellular immediate reaction Pertussis noted. 10952 Given 11/20/2016 Influenza Virus Vaccine, [id number] Quadrivalent, Split, Preservative Free 37185 Given 12/05/2015 Fluzone High Dose 31850 Given 12/12/2014 Fluzone High Dose 81559 Given 01/28/2014 Pneumococcal Conjugate [id number] Vaccine 13 Valent For Intramuscular Use 96827 Given 12/12/2013 Flu Vaccine Split Virus [id number] Preservative Free For Indiv 3Yr Older 89262 Given 01/06/2013 Zoster (Zostavax) [id number] Q2038 Given 12/17/2012 Fluzone Vaccine Q2038 Given 11/13/2011 Fluzone Vaccine [id number] Q2038 Given 11/14/2010 Fluzone Vaccine [id number] 52794 Given 12/17/2009 Influenza Virus 3Yrs & Over [id number] 29395 Given 02/11/2009 Influenza Virus 3Yrs & Over [id number] 05433 Given 12/12/2007 Influenza Virus 3Yrs & Over 35064 Given 11/29/2006 Influenza Virus 3Yrs & Over 21026 48941 Given 11/28/2005 Td (History By Patient) 16802 Given 12/26/1999 Pneumovax (History By Patient) Vital [...] Result H/L Range Note Basic Metabolic 01/30/2019 [facility] Sodium 139 mmol/L Normal 135-[address] [place] [address] [phone] Potassium 4.6 mmol/L Normal 3.5-5.0 Chloride 106 [...] Inject/Drain Joint/Bursa Major W/O US Completed 03/18/2019 83293 Interrogation Device Eval In Person W/ Completed Analysis,Single,Dual,Mul 03/18/2019 77138 Interrogation Device Eval In Person W/ Completed Analysis,Single,Dual,Mul 02/03/2019 43817 ECHO Transthoracic, Real-Time 2D With Doppler And Color Completed Flow 02/03/2019 99004 ECHO Transthoracic, Real-Time 2D With Doppler And Color Completed Flow 01/28/2019 58803 Pace Maker Eval W/Iterative Adjment Dual Lead Completed 01/28/2019 35523 Pace Maker Eval W/Iterative Adjment Dual Lead Completed 01/29/2007 26734531 Colonoscopy Completed 02/01/2001 06805955 Colonoscopy Completed Medical Devices Description No Information Available Encounters Type Date Location Provider Dx Diagnosis Office Visit 05/08/2019 [facility] Internal Rosario Kurtz MD S60.512A Abrasion of left 1:00p Medicine - Ccmob hand, initial encounter Office Visit 01/28/2019 [facility] Sydni Thuman, I48.0 Paroxysmal atrial 2:00p 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 04/09/2019 M25.461 Effusion, right knee Maria Alejandra Edy Hahn.D. 04/09/2019 M17.11 Unilateral primary osteoarthritis, right knee Maria Alejandra Jovani , M.D. 04/02/2019 M25.561 Pain in right knee Maria Alejandra Jovani, M.D. 04/02/2019 M25.461 Effusion, right knee Maria Alejandra Jovani M.D. 04/02/2019 M17.11 Unilateral primary osteoarthritis, right knee Maria Alejandra Jovani , M.D. 03/26/2019 M25.561 Pain in right knee Maria Alejandra Jovani, M.D. 03/26/2019 M25.461 Effusion, right knee Maria Alejandra Jovani, M.D. 03/26/2019 M17.11 Unilateral primary osteoarthritis, right knee Maria Alejandra Jovani , M.D. 03/18/2019 Z95.0 Presence of cardiac pacemaker Leticia [...] I49.3 Ventricular premature depolarization Sydni Wilson NP Plan of Treatment Future Appointment(s):08/01/2019 1:10 pm - Leticia Alston M.D. at [facility]05/08/2019 - Rosario Kurtz, MDS60.512A Abrasion of left hand, initial encounter Functional Status Description No Information Available Mental Status Description No Information Available Referrals Description No Information Available
--- OUTSIDE RECORDS SUMMARY | 2019-06-20 15:49 | XMS REPORT | Continuity of Care Document ---
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 Multivitamins 1 PO qd Nir Russell, 11/28/2006 Tablets M.D. Toprol XL 1 tab twice a 90tabs [...] Inj, Regadenoson, 0.1 MG Vj Skinner, DO [facility] 01/25/2018 Injection Technetium TC 99M Vj Skinner, DO [facility] 01/25/2018 Tetrofosmin, Per Unit Dose Up To 40 Millicuries Injection Triamcinolone (Kenalog) Crista Ortiz MD 01/09/2017 Injection Triamcinolone (Kenalog) Crista Ortiz MD 05/11/2016 Injection Inj, Regadenoson, 0.1 MG Vj Skinner, DO [facility] 04/21/2016 Injection Technetium TC 99M Vj Skinner, DO [facility] 04/21/2016 Tetrofosmin, Per Unit Dose Up To 40 Millicuries Injection Triamcinolone (Kenalog) Crista Ortiz MD 11/12/2015 Injection Depomedrol 40MG Maria Alejandra Hahn M.D. 07/12/2015 Injection Depomedrol 80MG Maria Alejandra Hahn M.D. 10/08/2013 Injection Depomedrol 80MG Maria Alejandra Hahn M.D. 01/06/2013 Injection Immunizations CPT Code Status Date Vaccine Reaction Lot # [id number] Given 11/28/2018 Fluzone High Dose 07905 Given 11/27/2017 Fluzone High Dose 00776 Given 02/28/2017 Tdap - Pt. tolerated well. No tb2r2 Tetanus/Diptheria/Acellular immediate reaction Pertussis noted. 66645 Given 11/20/2016 Influenza Virus Vaccine, [id number] Quadrivalent, Split, Preservative Free 77822 Given 12/05/2015 Fluzone High Dose 11232 Given 12/12/2014 Fluzone High Dose 08814 Given 01/28/2014 Pneumococcal Conjugate [id number] Vaccine 13 Valent For Intramuscular Use 31511 Given 12/12/2013 Flu Vaccine Split Virus [id number] Preservative Free For Indiv 3Yr Older 68365 Given 01/06/2013 Zoster (Zostavax) [id number] Q2038 Given 12/17/2012 Fluzone Vaccine Q2038 Given 11/13/2011 Fluzone Vaccine [id number] Q2038 Given 11/14/2010 Fluzone Vaccine [id number] 60474 Given 12/17/2009 Influenza Virus 3Yrs & Over [id number] 77686 Given 02/11/2009 Influenza Virus 3Yrs & Over [id number] 97629 Given 12/12/2007 Influenza Virus 3Yrs & Over 82569 Given 11/29/2006 Influenza Virus 3Yrs & Over 54007 36134 Given 11/28/2005 Td (History By Patient) 07776 Given 12/26/1999 Pneumovax (History By Patient) Vital Signs Date Vital Result Comment 06/20/2019 1:38pm Height 71.75 inches 5'11.75" Weight 206.00 lb with shoes BP Systolic 180 mmHg Lue reg cuff BP Diastolic 104 mmHg Lue reg cuff BP Systolic Sitting 170 mmHg p:64 Rue reg cuff BP Diastolic Sitting 90 mmHg p:64 Rue reg cuff BP Systolic Standing 180 mmHg P: 78 Rue reg cuff BP Diastolic Standing 100 mmHg P: 78 Rue reg cuff BP Systolic Lying Down 172 mmHg p: 50 Rue reg cuff BP Diastolic Lying Down 90 mmHg p: 50 Rue reg cuff Body Temperature 97.7 F O2 % BldC Oximetry 96 % at room air BMI (Body Mass Index) 28.1 kg/m2 05/08/2019 1:07pm Height 71.75 inches 5'11.75" Weight 207.38 lb Heart Rate 76 /min BP Systolic 140 mmHg BP Diastolic 82 mmHg Body Temperature 95.8 F O2 % BldC Oximetry 97 % BMI (Body Mass Index) 28.3 kg/m2 Results Test Acquired Date Facility Test Result H/L Range Note Basic Metabolic 01/30/2019 [facility] Sodium 139 mmol/L Normal 135-[address] [place] [address] [phone] Potassium 4.6 mmol/L Normal 3.5-5.0 Chloride 106 [...] (or dialysis) Procedures Date Code Description Status 06/20/2019 72428 Pace Maker Eval W/Iterative Adjment Dual Lead Completed 06/20/2019 33258 EKG Tracing & Interpretation Completed 04/09/201965202 Inject/Drain Joint/Bursa Major W/O US Completed 04/02/2019 Inject/Drain Joint/Bursa Major W/O US Completed 03/26/2019 Inject/Drain Joint/Bursa Major W/O US Completed 03/18/2019 15669 Interrogation Device Eval In Person W/ Completed Analysis,Single,Dual,Mul 03/18/2019 38031 Interrogation Device Eval In Person W/ Completed Analysis,Single,Dual,Mul 02/03/2019 05955 ECHO Transthoracic, Real-Time 2D With Doppler And Color Completed Flow 02/03/2019 26546 ECHO Transthoracic, Real-Time 2D With Doppler And Color Completed Flow 01/28/2019 52865 Pace Maker Eval W/Iterative Adjment Dual Lead Completed 01/28/2019 20709 Pace Maker Eval W/Iterative Adjment Dual Lead Completed 01/29/2007 04240982 Colonoscopy Completed 02/01/2001 16572382 Colonoscopy Completed Medical Devices Description No Information Available Encounters Type Date Location Provider Dx Diagnosis Office Visit 06/20/2019 [facility] Sydni Wilson NP R42 Dizziness and 2:00p Of Senior Qa Tester giddiness I10 Essential (primary) hypertension I48.0 Paroxysmal atrial fibrillation Z79.01 prison (current) use of anticoagulants Office Visit 05/08/2019 1:00p [facility] Internal Rosario Kurtz, S60.512A Abrasion of left Medicine - Ccmob MD hand, initial encounter Office Visit 01/28/2019 2:00p [place] Sydni I48.0 Paroxysmal atrial Cardiology Of FANNIE Wilson fibrillation Senior Qa Tester I71.2 Thoracic aortic aneurysm, without rupture I34.0 Nonrheumatic mitral (valve) insufficiency I49.3 Ventricular premature depolarization Assessments Date Code Description Provider 06/20/2019 I48.0 Paroxysmal atrial fibrillation Ica Pacer Schedule 06/20/2019 R42 Dizziness and giddiness Sydni Wilson NP 06/20/2019 Z95.0 Presence of cardiac pacemaker Ica Pacer Schedule 06/20/2019 I10 Essential (primary) hypertension Sydni Wilson NP 06/20/2019 I44.2 Atrioventricular block, complete Ica Pacer Schedule 06/20/2019 I48.0 Paroxysmal atrial fibrillation Sydni Wilson NP 06/20/2019 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 04/09/2019 M25.461 Effusion, right knee Maria Alejandra Jovani, M.D. 04/09/2019 M17.11 Unilateral primary osteoarthritis, right knee Maria Alejandra Jovani , M.D. 04/02/2019 M25.561 Pain in right knee Maria Alejandra Jovani, M.D. 04/02/2019 M25.461 Effusion, right knee Maria Alejandra Jovani, M.D. 04/02/2019 M17.11 Unilateral primary osteoarthritis, right [...] 1:10 pm - Leticia Alston M.D. at [facility]06/20/2019 - Sydni Wilson, NPR42 Dizziness and giddinessNew Xrays:CT Brain Wo, Ordered: 06/20/19I10 Essential (primary) hypertensionNew Labs :Basic Metabolic Panel, Ordered: 06/20/19Recommendations:increase Lisinopril to 10mg by mouth daily( take 2 tablets by mouth daily) Continue to monitor yourblood pressure get non fasting labs drawn in 7-10 days so i can reevaluate your potassium on higherlisinopril doseI48.0 Paroxysmal atrial axnqkkrmclcmK19.01 tank terminal gauger (current) use of anticoagulants Functional Status Description No Information Available Mental Status Description No Information Available Referrals Description No Information Available
--- OUTSIDE RECORDS SUMMARY | 2019-06-20 15:49 | XMS REPORT | Continuity of Care Document ---
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 Toprol XL 1.5 tablets 90tabs Sydni Wilson [...] Inj, Regadenoson, 0.1 MG Vj Skinner, DO [facility] 01/25/2018 Injection Technetium TC 99M Vj Skinner, DO [facility] 01/25/2018 Tetrofosmin, Per Unit Dose Up To 40 Millicuries Injection Triamcinolone (Kenalog) Crista Ortiz MD 01/09/2017 Injection Triamcinolone (Kenalog) Crista Ortiz MD 05/11/2016 Injection Inj, Regadenoson, 0.1 MG Vj Skinner, DO [facility] 04/21/2016 Injection Technetium TC 99M Vj Skinner, DO [facility] 04/21/2016 Tetrofosmin, Per Unit Dose Up To 40 Millicuries Injection Triamcinolone (Kenalog) Crista Ortiz MD 11/12/2015 Injection Depomedrol 40MG Maria Alejandra Hahn M.D. 07/12/2015 Injection Depomedrol 80MG Maria Alejandra Hahn M.D. 10/08/2013 Injection Depomedrol 80MG Maria Alejandra Hahn M.D. 01/06/2013 Injection Immunizations CPT Code Status Date Vaccine Reaction Lot # [id number] Given 11/27/2017 Fluzone High Dose 70931 Given 02/28/2017 Tdap - Pt. tolerated well. No tb2r2 Tetanus/Diptheria/Acellular immediate reaction Pertussis noted. 25774 Given 11/20/2016 Influenza Virus Vaccine, [id number] Quadrivalent, Split, Preservative Free 55868 Given 12/05/2015 Fluzone High Dose 41005 Given 12/12/2014 Fluzone High Dose 03395 Given 01/28/2014 Pneumococcal Conjugate [id number] Vaccine 13 Valent For Intramuscular Use 51018 Given 12/12/2013 Flu Vaccine Split Virus [id number] Preservative Free For Indiv 3Yr Older 40598 Given 01/06/2013 Zoster (Zostavax) [id number] Q2038 Given 12/17/2012 Fluzone Vaccine Q2038 Given 11/13/2011 Fluzone Vaccine [id number] Q2038 Given 11/14/2010 Fluzone Vaccine [id number] 67005 Given 12/17/2009 Influenza Virus 3Yrs & Over [id number] 83339 Given 02/11/2009 Influenza Virus 3Yrs & Over [id number] 21763 Given 12/12/2007 Influenza Virus 3Yrs & Over 75962 Given 11/29/2006 Influenza Virus 3Yrs & Over 11179 38035 Given 11/28/2005 Td (History By Patient) 99866 Given 12/26/1999 Pneumovax (History By Patient) Vital [...] Result H/L Range Note Basic Metabolic 01/30/2019 [facility] Sodium 139 mmol/L Normal 135-[address] [place] [address] [phone] Potassium 4.6 mmol/L Normal 3.5-5.0 Chloride 106 [...] Inject/Drain Joint/Bursa Major W/O US Completed 03/18/2019 74620 Interrogation Device Eval In Person W/ Completed Analysis,Single,Dual,Mul 03/18/2019 58395 Interrogation Device Eval In Person W/ Completed Analysis,Single,Dual,Mul 02/03/2019 40984 ECHO Transthoracic, Real-Time 2D With Doppler And Color Completed Flow 02/03/2019 14260 ECHO Transthoracic, Real-Time 2D With Doppler And Color Completed Flow 01/28/2019 08936 Pace Maker Eval W/Iterative Adjment Dual Lead Completed 01/28/2019 74864 Pace Maker Eval W/Iterative Adjment Dual Lead Completed 01/29/2007 28211677 Colonoscopy Completed 02/01/2001 75976122 Colonoscopy Completed Medical Devices Description No Information Available Encounters Type Date Location Provider Dx Diagnosis Office Visit 05/08/2019 [facility] Internal Rosario Kurtz MD S60.512A Abrasion of left 1:00p Medicine - Ccmob hand, initial encounter Office Visit 01/28/2019 [facility] Ysdni Thuman, I48.0 Paroxysmal atrial 2:00p Of [facility] HOME CARE RN fibrillation I71.2 Thoracic aortic aneurysm, without rupture I34.0 Nonrheumatic mitral (valve) insufficiency I49.3 Ventricular premature depolarization Office Visit 12/09/2018 9:45a [facility] Maria Alejandrateri Hahn, M25.561 Pain in right at [place] M.D. knee M25.461 Effusion, right knee M17.11 Unilateral primary osteoarthritis, right knee M25.361 Other instability, right knee Assessments Date Code Description Provider 05/08/2019 S60.512A Abrasion of left hand, initial encounter Rosario Kurtz MD 04/09/2019 M25.561 Pain in right knee Maria Alejandra Jovani M.DRubi 04/09/2019 M25.461 Effusion, right knee Maria Alejandraeduardo Hahn M.DRubi 04/09/2019 M17.11 Unilateral primary osteoarthritis, right knee Maria Alejandra Hahn M.D. 04/02/2019 M25.561 Pain in right knee Maria Alejandra Jovani M.D. 04/02/2019 M25.461 Effusion, right knee Edy Bocanegra.DRubi 04/02/2019 M17.11 Unilateral primary osteoarthritis, right knee Joselito BocanegraDRubi 03/26/2019 M25.561 Pain in right knee Maria Alejandra Jovani M.D. 03/26/2019 M25.461 Effusion, right knee Maria Alejandra Edy Hahn.DRubi 03/26/2019 M17.11 Unilateral primary osteoarthritis, right knee Maria Alejandra Hahn M.D. 03/18/2019 Z95.0 Presence of cardiac pacemaker [...] 1:00 pm - Ica Pacer Schedule at [facility]08/01/2019 1:10 pm - Leticia Alston M.D. at [facility]05/08/2019 - Rosario Kurtz, MDS60.512A Abrasion of left hand, initial encounter Functional Status Description No Information Available Mental Status Description No Information Available Referrals Description No Information Available
--- NOTE | 2019-06-20 16:06 | ED ---
Dizziness - HPI Summary HPI Summary: This patient is an 84 y/o male presenting to [facility] referred by Dr. Alston c/o dizziness x3-4 days. Patient reports dizziness occurs the first couple of hours when he first gets up from bed in the mornings. For the last 3-4 days patient has had dizziness upon standing up that lasts about 30 minutes each time and has to sit on the edge of the bed because he can't walk. Today he reports dizziness lasted a couple of hours, more than usual. He describes dizziness as "everything seems unstable," feeling wobbly, and as if his legs can't hold him up. Associated symptom of nausea today. He denies any associated chest pain, palpitations, visual changes, slurred speech, unilateral weakness or numbness, tinnitus, fever, recent colds. Patient reports he has hx of vertigo and states today's dizziness is not the same as his vertigo. He notes vertigo dizziness typically lasts all day. Currently patient denies any dizziness. Patient took his blood pressure over last weekend and states his diastolic was in the 90s. Patient went to see his route sales person's office today where he had an EKG done and his pacemaker was checked out. At the office patient's pacemaker was interrogated and he had no evidence of arrhythmia that coincided with symptoms, per route sales person. PMHx: afib, HTN. Patient is anticoagulated on Xarelto. PSHx: pacemaker placement, prostatectomy in 2001. He reports alcohol use of 1 drink/day, but not lately. Denies tobacco or drug use. NKDA. - History Of Current Complaint Chief Complaint: EDHypertension Stated Complaint: HYPERTENSION PER PT Time Seen by Provider: 06/20/19 15:43 Hx Obtained From: Patient Onset/Duration: Resolved Timing: Hours Severity Currently: Moderate Character: Dizzy Aggravating Factor(s): Nothing Alleviating Factor(s): Nothing Associated Signs And Symptoms: Positive: Nausea. Negative: Tinnitus, Chest Pain , Palpitations, Visual Changes, Fever, Slurred Speech, Other: - NEGATIVE: unilateral weakness or numbness - Allergies/Home Medications Allergies/Adverse Reactions: Allergies Allergy/AdvReac Type Severity Reaction Status Date / Time No Known Allergies Allergy Verified 06/20/19 15:30 Home Medications: Home Medications Acetaminophen TAB* [Tylenol TAB*] 650 mg PO Q4H PRN tab 08/26/17 [Rx Confirmed 06/20/19] Lisinopril TAB* [Prinivil TAB*] 5 mg PO DAILY 06/20/19 [History Confirmed ] Meclizine TAB* [Antivert 12.5 TAB*] 25 mg PO TID PRN #20 tab 06/20/19 [Rx] Metoprolol Succinate XL TAB* [Toprol XL TAB*] 75 mg PO DAILY 06/20/19 [History Confirmed 06/20/19] Multivitamins/Minerals TAB* [Theragran/minerals TAB*] 1 tab PO DAILY 06/20/19 [ History Confirmed 06/20/19] Omeprazole CAP (NF) [Prilosec CAP* 20 MG] 20 mg PO DAILY 06/20/19 [History Confirmed 06/20/19] Rivaroxaban TAB(*) [Xarelto 20 mg] 20 mg PO DAILY 06/20/19 [History Confirmed ] PMH/Surg Hx/FS Hx/Imm Hx Cardiovascular History: Reports: Hx Aneurysm, Hx Atrial Fibrillation, Hx Auto Implanted Cardiovert Defib, 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, Hx Hypertension - on meds, Hx Pacemaker/ICD - [employer]tronics, 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 right kidney benign tumor;2008. right wrist after a fall 22 yrs ago. 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 Alcohol Use: Daily Alcohol Amount: 1 drink daily Substance Use Type: Reports: None Smoking Status (MU): Former Smoker Amount Used/How Often: pack a day for 10 yrs Have You Smoked in the Last Year: No Review of Systems Negative: Fever Negative: Other - NEGATIVE: visual changes Negative: Other - NEGATIVE: tinnitus Negative: Palpitations, Chest Pain Positive: Nausea Neurological/Mental Status: Other - POSITIVE: dizziness Negative: Weakness, Numbness, Slurred Speech All Other Systems Reviewed And Are Negative: Yes Physical Exam - Summary Physical Exam Summary: Constitutional: Well-developed, Well-nourished, Alert. (-) Distressed Skin: Warm, Dry HENT: Normocephalic; Atraumatic Eyes: Conjunctiva normal Neck: Musculoskeletal ROM normal neck. (-) JVD, (-) Stridor, (-) Tracheal deviation Cardio: Rhythm regular, rate normal, Heart sounds normal; Intact distal pulses. Radial pulses are 2+ and symmetric. (-) Murmur Pulmonary/Chest wall: Effort normal. (-) Respiratory distress, (-) Wheezes, (-) Rales Abd: Soft. (-) Tenderness, (-) Distension, (-) Guarding, (-) Rebound Musculoskeletal: (-) Edema Lymph: (-) Cervical adenopathy Neuro: Alert, Oriented x3, Strength normal, Cranial nerves II-XII are grossly intact. (-) Dysmetria, (-) Ataxia by finger to nose testing, (-) Sensory deficit. Horizontal nystagmus with rightward gaze that is fatigable. Psych: Mood and affect Normal Triage Information Reviewed: Yes Vital Signs On Initial Exam: Initial Vitals Temp Pulse Resp BP Pulse Ox 98.0 F 75 19 178/104 97 06/20/19 15:26 06/20/19 15:26 06/20/19 15:26 06/20/19 15:26 06/20/19 15:26 Vital Signs Reviewed: Yes Procedures - Sedation Patient Received Moderate/Deep Sedation with Procedure: No Diagnostics - Vital Signs Vital Signs Temp Pulse Resp BP Pulse Ox 06/20/19 15:26 98.0 F 75 19 178/104 97 - Laboratory Result Diagrams: 06/20/19 15:57 06/20/19 15:57 Lab Statement: Any lab studies that have been ordered have been reviewed, and results considered in the medical decision making process. - CT CTA Head/Neck CT Interpretation Completed By: Radiologist Summary of CT Findings: IMPRESSION Head CTA: No hemodynamically significant stenosis or large vessel occlusion. IMPRESSION Neck CTA: No stenosis (0%) or dissection. Dr. Lin has reviewed this report. National Institutes Of Health - NIH Scale Level of Consciousness: Alert/Keenly Responsive Ask Patient the Month and His/Her Age: Both Correct Ask Pt to Open/Close Eyes and District Traffic Chief/Release Non-Paretic Hand: Both Correctly Best Gaze (Only Horizontal Eye Movement): Normal Visual Field Testing: No Visual Loss Facial Paresis-Pt to Smile & Close Eyes or Grimace Symmetry: Normal/Symmetrical Motor Function - Right Arm: No Drift-Holds 10 Seconds Motor Function - Left Arm: No Drift-Holds 10 Seconds Motor Function - Right Leg: No Drift-Holds 10 Seconds Motor Function - Left Leg: No Drift-Holds 10 Seconds Limb Ataxia-Must be out of Proportion to Weakness Present: Absent Sensory (Use Pinprick to Test Arms/Legs/Trunk/Face): Normal Best Language (Describe Picture, Name Items): No Aphasia Dysarthria (Read Several Words): Normal Extinction and Inattention: No Abnormality Total Score: 0 Dizzy Course/Dx - Course Course Of Treatment: Patient is here to the vertigo that occurs in the morning and with standing. Patient was sent from the cardiology office where he had his pacemaker interrogated and had no evidence of arrhythmia during these episodes. They sent him in to be evaluated for a neurologic perspective. Patient has a normal neurologic exam outside of fatigable nystagmus with rightward gaze. Given patient's symptoms, a CTA of his head/neck was performed which showed no evidence of abnormality. Patient had blood performed grossly unremarkable. Patient was able to ambulate without difficulty. Patient was discharged with a prescription for meclizine. - Diagnoses Provider Diagnoses: Vertigo - Critical Care Time Critical Care Statement: Critical care time is provided exclusive of any time spent performing procedures. Discharge ED - Sign-Out/Discharge Documenting (check all that apply): Patient Departure - Discharge home - Discharge Plan Condition: Stable Disposition: HOME Prescriptions: Meclizine TAB* [Antivert 12.5 TAB*] 25 mg PO TID PRN #20 tab PRN Reason: Vertigo Patient Education Materials: Vertigo (ED) Referrals: Nir Russell MD [Primary Care Provider] - Additional Instructions: Take medications as prescribed. Please follow up with your primary care physician in 1-3 days. PLEASE RETURN TO EMERGENCY DEPARTMENT FOR SLURRED SPEECH, ONE SIDED NUMBNESS, ONE SIDED WEAKNESS, DIFFICULTY WALKING, OR ANY OTHER CONCERNING SYMPTOMS. - Billing Disposition and Condition Condition: STABLE Disposition: Home - Attestation Statements Document Initiated by Lizzeth: Yes Documenting Scribe: Chrissy Govea Provider For Whom Еленаibjessie is Documenting (Include Credential): Bart Lin MD Scribe Attestation: Chrissy Cruz, scribed for Bart Lin MD on 06/23/19 at 0927. Scribe Documentation Reviewed: Yes Provider Attestation: The documentation as recorded by the Chrissy villanueva accurately reflects the service I personally performed and the decisions made by , Bart Lin MD Status of Scribe Document: Viewed
[2019-06-20 16:32] LABS: ABS Monocytes 0.5 10^3/ul (0-0.8); ABS Neutrophils 4.2 10^3/ul (1.5-7.7); Eosinophil % 0.7 %; Hematocrit 46 % (42-52); Hemoglobin 15.9 g/dL (14.0-18.0); Lymphocyte % 29.9 %; Mean Corpuscular HGB Conc 35 g/dL (31-36); Mean Corpuscular Hemoglobin 33 pg (27-31); Mean Corpuscular Volume 97 fL (80-94); Mean Platelet Volume 9.5 fL (7.4-10.4); Nucleated Red Blood Cells % 0.1; Platelet Count 234 10^3/uL (150-450); Red Blood Count 4.78 10^6 /uL (4.18-5.48); Red Cell Distribution Width 14 % (10-15); White Blood Count 6.8 10^3/uL (3.5-10.8)
[2019-06-20 16:46] LABS: INR 1.12 (0.82-1.09)
[2019-06-20 17:07] LABS: BUN/Creatinine Ratio 16.3 (8-20); Calcium 9.8 mg/dL (8.6-10.3); EGFR African American 81.9 (>60); EGFR Non-African American 67.7 (>60); Potassium 4.5 mmol/L (3.5-5.0)
[2019-06-20] MEDS ORDERED: Iohexol 350* (CONTRAST) 500 ML MDV IV ONE (17:13)
[2019-06-20 18:18] VITALS: BP 156/82
== END 2019-06-20 18:17 | disposition home or self-care (01) ==
LOC: ED 15:26
DX: R11.0 Nausea (principal); R42 Dizziness and giddiness; Z95.0 Presence of cardiac pacemaker; I11.0 Hypertensive heart disease with heart failure; I50.9 Heart failure, unspecified; Z79.01 Long term (current) use of anticoagulants; Z85.46 Personal history of malignant neoplasm of prostate
CPT/HCPCS: 36415; 70496; 70498; 80048; 84484; 85025; 85610; 99283; Q9967